=== PATIENT | female | born 2000 | race Caucasian/White ===

== ENCOUNTER 2022-04-04 11:37 | Emergency (ER) | payer OTHER, SELFPAY ==
[2022-04-04 11:44] VITALS: BP 145/90; PULSE 88; RESP 20; TEMP 36.9; O2SAT 100
[2022-04-04 11:51] VITALS: BP 145/90; PULSE 88; RESP 20; TEMP 36.9; O2SAT 100
--- NOTE | 2022-04-04 11:55 | ED.SKABFB ---
HPI - Skin/Abscess/Foreign Bdy General Chief complaint: Skin/Abscess/Foreign Body Stated complaint: rash all over Time Seen by Provider: 04/04/22 11:55 Source: patient and RN notes reviewed Mode of arrival: ambulatory Limitations: no limitations History of Present Illness HPI narrative: 21-year-old female presents with concern for rash on both arms, legs. She reportsShe is 1 month . She reports 1 month ago she started a new blood pressure medication, she denies any recent medications or medication changes. She denies any new soaps, lotions, personal care products. Denies any history of reactions to food. She did stay at a new home with animals last night. She reports symptoms started last night. She reports she took a Benadryl on the way here. She reports some nausea without vomiting. She denies swollen lips, swollen tongue, trouble breathing MD complaint: rash Related Data Home Medications Medication Instructions Recorded Confirmed medroxyprogesterone 150 mg/mL mg IM 04/04/22 intramuscular suspension nifedipine 90 mg tablet,extended 90 mg PO 1XD 04/04/22 04/04/22 release 24 hr tobramycin 0.3 % eye drops drp 04/04/22 Allergies Allergy/AdvReac Type Severity Reaction Status Date / Time No Known Allergies Allergy Verified 04/04/22 11:49 Review of Systems Review of Systems: CONSTITUTIONAL: Denies malaise, chills, sweats, or fever. EYES: Denies redness, or discharge. ENT: Denies rhinorrhea, congestion, swollen lips, swollen tongue CARDIOVASCULAR: Denies chest pain, palpitations, or edema. RESPIRATORY: Denies cough or dyspnea. GASTROINTESTINAL: Denies abdominal pain, vomiting. Reports nausea SKIN: Reports itchy rash on bilateral arms, legs MUSCULOSKELETAL: Denies joint pain or myalgia. NEUROLOGIC: Denies headache. All systems reviewed & are unremarkable except as noted in HPI and below PMFSH Comments At time of signature, agree with nursing past medical, surgical, social and family history. There is no relevant family history pertinent to the presenting complaint Exam Narrative: GENERAL: Well-appearing, well-nourished, and in no acute distress. HEAD: Normocephalic, atraumatic. EYES: PERRLA, conjunctivae clear, and EOMI. ENT: Mucous membranes moist. Oropharynx without edema, erythema or lesions. NECK: Supple. No lymphadenopathy CHEST: Clear to auscultation. No respiratory distress. HEART: Regular rate and rhythm. SKIN: Warm, dry. Urticarial rash noted to bilateral arms and legs NEURO: Alert and oriented x3. PSYCH: Normal mood and affect Course Course Emergency Course: Methylprednisolone given Patient is aware of diagnosis, understands and agrees to treatment plan. Anticipatory guidance given. Patient agrees to follow-up as directed and is aware of reasons to seek care at the emergency department. Portions of this record may have been created with voice recognition software Level of Care: Express Care Visit Vital Signs Vital signs: Vital Signs Temperature 98.5 F 04/04/22 11:44 Pulse Rate 88 04/04/22 11:44 Respiratory Rate 20 04/04/22 11:44 Blood Pressure 145/90 H 04/04/22 11:44 Pulse Oximetry 100 04/04/22 11:44 Oxygen Delivery Room Air 04/04/22 11:44 Temperature 98.5 F 04/04/22 11:51 Pulse Rate 88 04/04/22 11:51 Respiratory Rate 20 04/04/22 11:51 Blood Pressure 145/90 H 04/04/22 11:51 Pulse Oximetry 100 04/04/22 11:51 Oxygen Delivery Room Air 04/04/22 11:51 Reviewed. MDM - Skin/Abscess/Foreign Bdy MDM Narrative Medical decision making narrative: Does not appear at this time to be erythema multiforme, bullous, SJS, TEN; no evidence at this time to suggest RMSF, endocarditis or Lyme disease; patient looks well, nontoxic and is tolerating oral intake; no neurologic signs or symptoms; no headache, photophobia or neck pain; afebrile; appropriate for initial outpatient treatment; discussed the importance of follow-up, patient agrees; quest
[2022-04-04] MEDS: methylPREDNISolone SOD SUCC 125 MG VIAL IM (12:17)
== END 2022-04-04 12:38 | disposition home or self-care (01) ==
PROVIDERS: Emergency Provider Nurse Practitioner
DX: L50.9 Urticaria, unspecified (principal)
CPT/HCPCS: 96372; 99213; G0463; J2930

== ENCOUNTER 2022-06-15 15:01 | Emergency (ER) | payer OTHER, SELFPAY ==
[2022-06-15 15:14] VITALS: BP 136/77; PULSE 83; RESP 18; TEMP 36.7; O2SAT 99
--- NOTE | 2022-06-15 15:22 | ED.ABDPAIN ---
HPI - Abdominal Pain General Chief Complaint: Abdominal Pain Stated Complaint: Abdominal Pain/Vomiting Time Seen by Provider: 06/15/22 15:22 Source: patient Mode of arrival: ambulatory Limitations: no limitations History of Present Illness HPI narrative: 21-year-old female presents with complaint of abdominal cramping, nausea vomiting for 5 days. Positive fatigue. Afebrile. Denies urinary symptoms. Today she states she was able to keep down 3 crackers and a little bit of water. Previously was unable to get out of bed due to feeling sick but states was able to get today. Needs work note. denies diarrhea. Reports has not had bowel movements since symptoms started due to not eating. All systems reviewed and negative except as noted above. Related Data Allergies Allergy/AdvReac Type Severity Reaction Status Date / Time No Known Allergies Allergy Verified 06/15/22 15:18 Review of Systems Review of Systems: CONSTITUTIONAL: Denies fever, chills, or sweats. EYES: Denies visual changes, redness, or discharge. ENT: Denies rhinorrhea, congestion, sore throat, or otalgia. CARDIOVASCULAR: Denies chest pain, palpitations, or edema. RESPIRATORY: Denies cough or dyspnea. GASTROINTESTINAL: Reports abdominal pain, nausea, vomiting. Denies diarrhea. GENITOURINARY: Denies dysuria or hematuria. SKIN: Denies rash or itching. MUSCULOSKELETAL: Denies back pain, joint pain, or myalgia. NEUROLOGIC: Denies headache, numbness, or weakness. PSYCHIATRIC: Denies anxiety or depression. All other systems reviewed are negative, except as documented in HPI. PMFSH Comments At time of signature, agree with nursing past medical, surgical, social and family history. There is no relevant family history pertinent to the presenting complaint. Exam Narrative: GENERAL: This is a well-nourished, well-developed patient, in no apparent distress. HEAD: normocephalic, atraumatic. EYES: PERRL. Sclera clear/white. Vision is grossly intact. EARS: External ears normal NOSE: External nose normal NECK: Neck supple, non-tender without lymphadenopathy, masses or thyromegaly. CARDIOVASCULAR: Regular rate and rhythm without murmurs, gallops, or rubs. RESPIRATORY: Clear to auscultation. Breath sounds equal bilaterally. No wheezes, rales, or rhonchi. GASTROINTESTINAL: Abdomen soft, non-tender, nondistended. Bowel sounds are active. No hepato-splenomegaly, or palpable masses. No guarding. SKIN: warm, Dry, intact with no suspicious lesions or rash, good texture and turgor. NEURO: awake, alert, and oriented to person, place and time. There were no obvious focal neurologic abnormalities. EXTREMITIES: No joint tenderness, effusion, or edema noted. Course Course Level of Care: Express Care Visit Vital Signs Vital signs: Vital Signs Temperature 36.7 C 06/15/22 15:14 Pulse Rate 83 06/15/22 15:14 Respiratory Rate 18 06/15/22 15:14 Blood Pressure 136/77 06/15/22 15:14 Pulse Oximetry 99 06/15/22 15:14 Oxygen Delivery Room Air 06/15/22 15:14 Temperature 36.7 C 06/15/22 15:14 Pulse Rate 83 06/15/22 15:14 Respiratory Rate 18 06/15/22 15:14 Blood Pressure 136/77 06/15/22 15:14 Pulse Oximetry 99 06/15/22 15:14 Oxygen Delivery Room Air 06/15/22 15:14 reviewed MDM - Abdominal Pain MDM Narrative Medical decision making narrative: Patient is aware of diagnosis, understands and agrees to treatment plan. Anticipatory guidance given. Patient agrees to follow-up as directed and is aware of reasons to seek care at the emergency department. Portions of this record may have been created with voice recognition software Discharge Plan Discharge Clinical Impression: Viral gastroenteritis Patient Disposition: Home, Self-Care Condition: Stable Instructions: Gastroenteritis (ED) Additional Instructions: take medications as prescribed. Ondansetron may cause constipation and gas pain. Drink at least 64 oz of water a d
[2022-06-15] MEDS: ONDANSETRON HCL ODT 4 MG TABLET SUBLINGUAL (15:50)
== END 2022-06-15 15:51 | disposition home or self-care (01) ==
PROVIDERS: Emergency Provider Nurse Practitioner Family; PCP Emergency Medicine
DX: A08.4 Viral intestinal infection, unspecified (principal)
CPT/HCPCS: 99213; A9270; G0463

== ENCOUNTER 2023-11-13 17:13 | Emergency (ER) | payer OTHER, SELFPAY ==
[2023-11-13 17:26] VITALS: BP 105/77; PULSE 100; RESP 18; TEMP 36.9; O2SAT 98
--- NOTE | 2023-11-13 18:14 | ED.GENADULT ---
HPI - General Adult General Chief complaint: Urogenital-Female Stated complaint: UTI/nausea Time Seen by Provider: 11/13/23 18:15 Source: patient, RN notes reviewed and old records reviewed Mode of arrival: ambulatory Limitations: no limitations History of Present Illness HPI narrative: 22-year-old female to Express Care for complaint lower abdominal cramping, pressure, yellow milky vaginal discharge, constipation, for 3 weeks. Upon further investigation patient discloses history of chronic belly issues Including hernia repair as well as chronic nausea and vomiting. Patient states she to emergency on the and on the . Patient was initially treated with amoxicillin Cipro for urinary tract infection. Patient reports vomiting 5-6 times today. Patient cannot recall last regular bowel movement. Patient endorses continued urinary frequency, hesitancy and retention.Patient states she has attempted to treat at home with brat diet and clear fluids with little relief. respirations even and nonlabored. Patient in no acute distress. Related Data Allergies Allergy/AdvReac Type Severity Reaction Status Date / Time No Known Allergies Allergy Verified 06/15/22 15:18 Review of Systems Review of Systems: All systems reviewed & are unremarkable except as noted in HPI and below Constitutional: Constitutional: Reports no additional constitutional complaints Eyes: Eyes: Reports no additional eye complaints ENT: Reports system reviewed and no additional complaints, except as documented Cardiovascular: Cardiovascular: Reports no additional cardiovascular complaints, Denies chest pain and Denies dyspnea Respiratory: Respiratory: Reports no additional respiratory complaints, Denies cough and Denies dyspnea Musculoskeletal: Musculoskeletal: Reports no additional musculoskeletal complaints Neurologic: Reports system reviewed and no additional complaints, except as documented Psychiatric: Psychiatric: Reports no additional psychiatric complaints PMFSH Comments At the time of my signature, I reviewed and agree with the nursing past medical, surgical, social, and family history. There is no relevant family history pertinent to the patient complaint. Exam Const: General: cooperative, healthy appearing, comfortable, no acute distress, alert and well nourished Nutritional Appearance: well nourished Orientation/consciousness: patient oriented x3 Limitations: no limitations HENMT: Head: normal to inspection Ears: external ears normal Face/Nose/Sinus: Normal external nose present, Normal nares present, normal facial exam, No erythema and No edema Face and sinus: normal facial exam, no erythema and no edema Mouth: Yes Normal oral and palatal mucosa present Eyes: General: appearance normal, both eyes and all related structures Neck: Neck: normal visual inspection, full ROM and no meningeal signs Lymphatic: no lymphadenopathy noted and no lymphedema noted Chest: Chest palpation & inspection: normal inspection of the chest Resp: Effort & Inspection: normal respiratory effort and able to speak in complete sentences Auscultation: clear to auscultation bilaterally Cardio: Jugular venous distension: no JVD Rate: regular rate Rhythm: regular rhythm Back/Spine/Pelvis: Cervical Spine: cervical ROM normal Skin: General skin exam: normal color, no rashes or lesions noted and turgor normal Neuro: General: patient oriented x3, gait normal, moves all extremities and no meningeal signs Speech: normal speech Gait exam (Neuro): Normal gait present Extrem: General: normal to inspection, full ROM and capillary refill normal Psych: Appearance: grossly normal and well kempt Course Course Emergency Course: Some parts of this dictation were generated by voice recognition software and may contain typographical and/or grammatical inaccuracies. Level of Care: Express Care Visit Vital Signs Vital signs: Vital Signs Temperature 36.9 C 0
== END 2023-11-13 18:45 | disposition home or self-care (01) ==
PROVIDERS: Emergency Provider Nurse Practitioner Family
DX: R10.30 Lower abdominal pain, unspecified (principal)
CPT/HCPCS: 99213; G0463